=== PATIENT | female | born 1935 | race Caucasian/White ===

== ENCOUNTER 2016-12-14 10:23 | Emergency (ER) | payer MEDICARE | END 2016-12-14 13:48 | disposition home or self-care (01) | LOC: D.ER 10:23 | DX: M25.562 Pain in left knee (principal); M76.52 Patellar tendinitis, left knee; M17.12 Unilateral primary osteoarthritis, left knee; I10 Essential (primary) hypertension; H35.30 Unspecified macular degeneration ==